=== PATIENT | female | born 1995 | race Caucasian/White ===

== ENCOUNTER 2019-08-26 10:23 | Emergency (ER) | payer OTHER, SELFPAY ==
[2019-08-26 10:34] VITALS: BP 147/69; PULSE 107; RESP 18; TEMP 38; O2SAT 98
--- NOTE | 2019-08-26 11:10 | ED.WOUNDLAC ---
HPI - Wound/Laceration General Chief Complaint: Wound/Laceration Stated Complaint: lt hand laceration Time Seen by Provider: 08/26/19 11:10 Source: patient and RN notes reviewed Mode of arrival: ambulatory Limitations: no limitations History of Present Illness HPI narrative: 24 year old female accompanied with mother presents to express care accompanied by mother with complaints of laceration to the dorsal aspect of her left thumb which occurred about 30 minutes ago at home. Patient states that she was using box fabricator and was attempting to cut open shampoo bottle and knife slipped causing laceration. Patient has 4 cm linear laceration to her left dorsal thumb area, bleeding controlled. Patient has full mobility of her left thumb, strong left radial pulse, nailbeds of left hand have brisk capillary refill. Onset (ago): minute(s) (30) Location: other (left dorsal thumb) Extremity Location: Left: hand Place: home Patient tetanus UTD: Yes Context: accidental Associated symptoms: pain Treatments prior to arrival: bandage Related Data Home Medications Medication Instructions Recorded Confirmed norethindrone ac-eth estradiol 1 tablet PO DAILY 08/26/19 08/26/19 [ ()] Allergies Allergy/AdvReac Type Severity Reaction Status Date / Time azithromycin Allergy Unknown Verified 08/26/19 10:33 Penicillins Allergy Unknown Verified 08/26/19 10:33 Review of Systems Review of Systems: Narrative: CONSTITUTIONAL: Denies fever, chills, or sweats. EYES: Denies visual changes, redness, or discharge. ENT: Denies rhinorrhea, congestion, sore throat, or otalgia. CARDIOVASCULAR: Denies chest pain, palpitations, or edema. RESPIRATORY: Denies cough or dyspnea. GASTROINTESTINAL: Denies abdominal pain, nausea, vomiting, or diarrhea. GENITOURINARY: Denies dysuria or hematuria. SKIN: Denies rash or itching.laceration to left dorsal thumb MUSCULOSKELETAL: Denies back pain, joint pain, or myalgia. NEUROLOGIC: Denies headache, numbness, or weakness. PSYCHIATRIC: Denies anxiety or depression. All systems reviewed & are unremarkable except as noted in HPI and below PMFSH Past Medical History Medical History (Updated 08/28/19 @ 10:39 by Massiel Carballo NP) Fracture of radius, right, closed GERD (gastroesophageal reflux disease) Surgical History Surgical History (Updated 08/28/19 @ 10:35 by Massiel Carballo NP) Hx of breast reduction, elective Hx of cholecystectomy Family History Family History (Updated 08/28/19 @ 10:37 by Massiel Carballo NP) Mother Diabetes mellitus Other Hypertension Social History Social History (Updated 08/28/19 @ 10:36 by Massiel Carballo NP) Smoking status: Never smoker Alcohol intake: current Living arrangements: with family Gender identity (if verbalized by the patient): Female Comments At time of signature, agree with nursing past medical, surgical, social and family history. There is no relevant family history pertinent to the presenting complaint Exam Narrative: Exam Narrative: GENERAL: Well-appearing, well-nourished, and in no acute distress. HEAD: Normocephalic, atraumatic. EYES: PERRLA and EOMI. ENT: Nares clear, no rhinorrhea or epistaxis. Mucous membranes moist. NECK: Supple. CHEST: Clear to auscultation. No respiratory distress. HEART: Regular rate and rhythm. No murmur heard. Normal peripheral pulses. ABDOMEN: Soft, nontender, nondistended, normal active bowel sounds. EXTREMITIES: Normal range of motion. No edema.sensation and circulation intact to left hand and thumb SKIN: Warm, dry, no rash.4 cm linear laceration to left dorsal thumb area SCM intact, bleeding controlled. NEURO: No focal deficits. Alert and oriented x3. Course Vital Signs Vital signs: Vital Signs Temperature 38.0 C H 08/26/19 10:34 Pulse Rate 107 H 08/26/19 10:34 Respiratory Rate 18 08/26/19 10:34 Blood Pressure 147/69 H 08/26/19 10:34 Pulse Oximetry 98 08/26/19 10:34
== END 2019-08-26 11:57 | disposition home or self-care (01) ==
PROVIDERS: Emergency Provider Registered Nurse
DX: S61.012A Laceration without foreign body of left thumb without damage to nail, initial encounter (principal); W26.8XXA Contact with other sharp object(s), not elsewhere classified, initial encounter; K21.9 Gastro-esophageal reflux disease without esophagitis
CPT/HCPCS: 12002; 99213; G0463

== ENCOUNTER 2020-09-10 22:11 | Emergency (ER) | payer OTHER, SELFPAY ==
--- NOTE | ~2020-09-10 | XR_ITS ---
EXAMINATION: XR ankle RT min 3V DATE: 09/10/2020 22:27 INDICATION: Right ankle injury and swelling. TECHNIQUE: 4 views of right ankle were obtained. COMPARISON: None. FINDINGS: Bone alignment is normal. No fracture. Joint spaces are well maintained. There is an enthes ophyte at posterior aspect of calcaneal tuberosity. There is ankle soft tissue swelling. IMPRESSION: 1. No fracture. Reviewed, dictated and finalized at location A. IMPRESSION: 1. No fracture.
[2020-09-10 22:14] VITALS: BP 140/89; PULSE 110; RESP 20; TEMP 36.8; O2SAT 100
[2020-09-11 00:31] VITALS: BP 113/83; PULSE 98; RESP 16; O2SAT 100
--- NOTE | 2020-09-11 02:09 | ED.GENADULT ---
HPI - General Adult General Chief complaint: Extremity Injury, Lower Stated complaint: r ankle pain Time Seen by Provider: 09/11/20 02:03 History of Present Illness HPI narrative: Patient is a 25-year-old female presents the emergency department chief complaint of right ankle pain. 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 The patient states that it hurts whenever she attempts to put weight on it reports there is swelling reports no lacerations denies any other injury. Patient reports she has history of prior wrist fracture and a breast reduction and cholecystectomy.. Patient denies illicit drug use. Related Data Home Medications Medication Instructions Recorded Confirmed norethindrone ac-eth estradiol 1 tablet PO DAILY 08/26/19 08/26/19 [June ()] Allergies Allergy/AdvReac Type Severity Reaction Status Date / Time azithromycin Allergy Unknown Difficulty Verified 09/11/20 00:29 Breathing Penicillins Allergy Unknown Unknown Verified 09/11/20 00:29 Review of Systems Review of Systems: A 10 system review of systems was completed on the patient and is negative except for what is stated in the HPI. Nursing and ancillary documentation was reviewed. [facility] Past Medical History Medical History Fracture of radius, right, closed GERD (gastroesophageal reflux disease) Surgical History Surgical History Hx of breast reduction, elective Hx of cholecystectomy Family History Family History Mother Diabetes mellitus Other Hypertension Social History Social History Smoking status: Never smoker Alcohol intake: current Gender identity (if verbalized by the patient): Female Exam Narrative: GENERAL: Well-appearing, well-nourished, and in no acute distress. HEAD: Normocephalic, atraumatic. EYES: PERRLA and EOMI. ENT: Nares clear, no rhinorrhea or epistaxis. Mucous membranes moist. NECK: Supple. CHEST: Clear to auscultation. No respiratory distress. HEART: Regular rate and rhythm. No murmur heard. Normal peripheral pulses. ABDOMEN: Soft, nontender, nondistended, normal active bowel sounds. EXTREMITIES: Normal range of motion. No edema. There is swelling present on the lateral malleolus of the right ankle SKIN: Warm, dry, no rash. NEURO: No focal deficits. Alert and oriented x3. PSYCH: Normal mood and affect. Course Course Emergency Course: Plain film x-rays of the right ankle showed no evidence of fracture Vital Signs Vital signs: Vital Signs Temperature 36.8 C 09/10/20 22:14 Pulse Rate 110 H 09/10/20 22:14 Respiratory Rate 20 09/10/20 22:14 Blood Pressure 140/89 09/10/20 22:14 Pulse Oximetry 100 09/10/20 22:14 Temperature 36.8 C 09/10/20 22:14 Pulse Rate 98 09/11/20 00:31 Respiratory Rate 16 09/11/20 00:31 Blood Pressure 113/83 09/11/20 00:31 Pulse Oximetry 100 09/11/20 00:31 Medical Decision Making Vital Signs Vital Signs: Vital Signs Temperature 36.8 C 09/10/20 22:14 Pulse Rate 110 H 09/10/20 22:14 Respiratory Rate 20 09/10/20 22:14 Blood Pressure 140/89 09/10/20 22:14 Pulse Oximetry 100 09/10/20 22:14 Temperature 36.8 C 09/10/20 22:14 Pulse Rate 98 09/11/20 00:31 Respiratory Rate 16 09/11/20 00:31 Blood Pressure 113/83 09/11/20 00:31 Pulse Oximetry 100 09/11/20 00:31 Discharge Plan Discharge Clinical Impression: Right ankle sprain Qualifiers: Encounter type: initial encounter Involved ligament of ankle: unspecified ligament Qualified Code(s): S93.401A
[2020-09-11] MEDS: IBUPROFEN 400 MG TABLET 800 MG PO (02:30)
[2020-09-11 02:31] VITALS: BP 134/90; PULSE 99; RESP 16; O2SAT 100
== END 2020-09-11 02:39 | disposition home or self-care (01) ==
PROVIDERS: Emergency Provider Emergency Medicine
DX: S93.401A Sprain of unspecified ligament of right ankle, initial encounter (principal); K21.9 Gastro-esophageal reflux disease without esophagitis; W01.0XXA Fall on same level from slipping, tripping and stumbling without subsequent striking against object, initial encounter; X50.9XXA Other and unspecified overexertion or strenuous movements or postures, initial encounter
CPT/HCPCS: 73610; 99283; A9270